=== PATIENT | male | born 1945 | race Caucasian/White ===

== ENCOUNTER 2022-06-10 07:47 | Outpatient (CLI) | payer MEDICARE ==
[2022-06-10] MEDS ORDERED: Iopamidol 300 61% 100 ML VIAL FS ONE (13:42)
== END 2022-06-10 07:48 | disposition home or self-care (01) ==
LOC: CSHCT 07:47
PROVIDERS: ATTEND Internal Medicine Gastroenterology
DX: Z87.19 Personal history of other diseases of the digestive system (principal); K59.09 Other constipation; K80.20 Calculus of gallbladder without cholecystitis without obstruction; I87.8 Other specified disorders of veins
CPT/HCPCS: 74178; 82565; Q9967

== ENCOUNTER 2023-09-01 14:24 | Inpatient (IN) | payer MEDICARE ==
[2023-09-01 15:04] VITALS: BMI 30.9
[2023-09-01] MEDS ORDERED: Acetaminophen 325 MG TAB PO PRN (15:54)
[2023-09-01] MEDS ORDERED: Ondansetron PF 4 MG/2 ML Vial IVP PRN (15:54)
[2023-09-01] MEDS ORDERED: Acetaminophen 650 MG Suppository PR PRN (15:54)
[2023-09-01] MEDS ORDERED: Ondansetron ODT 4 MG TAB PO PRN (15:54)
[2023-09-01] MEDS ORDERED: traZODone HCl 50 MG TAB PO PRN (16:54)
[2023-09-01] MEDS: Azithromycin 500 MG in Sodium Chloride 0.9% 250 ML 250 ML IVPB SCH (17:51)
[2023-09-01 19:08] LABS: Troponin I 0.107 ng/mL (< 0.028)
[2023-09-01] MEDS: Atorvastatin Calcium 20 MG TAB PO SCH (22:25)
[2023-09-01] MEDS: Magnesium Oxide 250 MG TAB PO SCH (22:25)
[2023-09-01] MEDS: predniSONE 5 MG TAB PO SCH (22:26)
[2023-09-01] MEDS: Polyvinyl Alcohol 1.4%/Povidone 0.6% Opth Drops EA EYE SCH (22:26)
[2023-09-01 22:35] LABS: Troponin I 0.086 ng/mL (< 0.028)
[2023-09-02 05:49] LABS: Anion Gap 11 mmol/L (10-20); BUN (Urea Nitrogen) 19 mg/dL (8.4-25.7); Calc. Creatinine Clearance 107 mL/min (70-130); Calcium 8.1 mg/dL (7.8-10.44); Carbon Dioxide 26 mmol/L (23-31); Chloride 108 mmol/L (98-107); Estimated GFR 89; Glucose 96 mg/dL (83-110); Potassium 3.9 mmol/L (3.5-5.1); Sodium 141 mmol/L (136-145)
[2023-09-02] MEDS: Levothyroxine Sodium 88 MCG TAB PO SCH (05:49)
[2023-09-02 05:54] LABS: #Eosinphils 0.2 10x3/uL (0.0-0.5); #Monocytes 0.7 10x3/uL (0.0-1.1); #Neutrophils 7.5 10x3/uL (1.5-8.4); %Basophils 0.3 % (0.0-2.0); %Eosinophils 1.5 % (0.0-6.0); %Lymphocytes 21.8 % (18.0-47.0); %Monocytes 6.7 % (0.0-10.0); %Neutrophils 69.4 % (40.0-75.0); Hematocrit 39.9 % (38.8-50.0); Mean Corpuscular HGB CONC 32.6 g/dL (32.0-36.0); Mean Corpuscular Hemoglobin 30.2 pg (27.0-33.0); Mean Corpuscular Volume 92.8 fl (81.2-95.1); Mean Platelet Volume 11.5 fl (7.4-10.4); RBC Distribution Width 14.4 % (11.5-14.5); White Blood Cell (WBC) Count 10.9 10x3/uL (3.5-10.5)
[2023-09-02 06:31] LABS: Platelet Adequacy Comment Appears Decreased; Platelet Count 117 10x3/uL (150-450); RBC Morph Comment Within Normal Limits
[2023-09-02 07:10] LABS: Actual Bicarbonate (HCO3v) 28.9 mEq/L (22-28); Analyzer IN Cardio CS ER; Base Excess 3.8 mEq/L (-2 - +2); Chloride (VBG) 106 mmol/L (98-106); Hematocrit-VBG 41 % (42.0-52.0); Hemoglobin (Hb) 13.9 g/dL (12.6-17.4); Potassium (VBG) 4.56 mmol/L (3.70-5.30); Puncture Site Other Site; RapidComm Collect By LAB TECH; Sodium 141 mmol/L (133-146)
[2023-09-02] MEDS: Losartan 50 MG TAB PO SCH (09:18)
[2023-09-02] MEDS: Enoxaparin 40 MG (0.4 mL) SYRINGE SC SCH (09:18)
[2023-09-02] MEDS: predniSONE 10 MG TAB PO SCH (09:19)
[2023-09-02] MEDS: Azelastine 137 MCG/NASAL Spray 30 ML NS SCH (09:19)
[2023-09-02] MEDS: Amlodipine 10 MG TAB PO SCH (09:19)
[2023-09-02] MEDS: Aspirin 81 mg Enteric Coated Tablet PO SCH (09:19)
[2023-09-02] MEDS: cefTRIAXone\\ROCEPHIN 2 GM in Sodium Chloride 0.9% 100 ML IVPB SCH (16:06)
[2023-09-02] MEDS: predniSONE 5 MG TAB PO SCH (18:35)
[2023-09-03] MEDS: predniSONE 10 MG TAB PO SCH (09:00)
[2023-09-03 09:32] VITALS: TEMP 98.1
[2023-09-03 09:33] LABS: #Eosinphils 0.2 10x3/uL (0.0-0.5); #Monocytes 0.6 10x3/uL (0.0-1.1); #Neutrophils 5.7 10x3/uL (1.5-8.4); %Basophils 0.4 % (0.0-2.0); %Eosinophils 1.8 % (0.0-6.0); %Lymphocytes 24.5 % (18.0-47.0); %Monocytes 6.8 % (0.0-10.0); %Neutrophils 66.3 % (40.0-75.0); Hematocrit 40.6 % (38.8-50.0); Hemoglobin 13.4 g/dL (13.5-17.5); Mean Corpuscular Volume 90.8 fl (81.2-95.1); Mean Platelet Volume 11.1 fl (7.4-10.4); Platelet Count 123 10x3/uL (150-450); RBC Distribution Width 13.4 % (11.5-14.5); Red Blood Cell (RBC) Count 4.47 10x6/uL (4.32-5.72); White Blood Cell (WBC) Count 8.6 10x3/uL (3.5-10.5)
[2023-09-03 09:56] LABS: Anion Gap 11 mmol/L (10-20); BUN (Urea Nitrogen) 15 mg/dL (8.4-25.7); Calc. Creatinine Clearance 111 mL/min (70-130); Calcium 8.3 mg/dL (7.8-10.44); Carbon Dioxide 27 mmol/L (23-31); Chloride 106 mmol/L (98-107); Estimated GFR 90; Glucose 144 mg/dL (83-110); Potassium 3.4 mmol/L (3.5-5.1); Sodium 141 mmol/L (136-145)
[2023-09-03] MEDS: Potassium Chloride 20 MEQ TAB PO SCH (12:45)
[2023-09-03 12:54] VITALS: BP 154/70
== END 2023-09-03 15:40 | disposition home or self-care (01) | DRG 193 ==
LOC: CSHTELE 14:24 → INTOOBSV 14:24 → OBSVTOIN 15:54
PROVIDERS: ADMIT Family Medicine; ATTEND Internal Medicine
DX: J18.9 Pneumonia, unspecified organism (principal); I21.A1 Myocardial infarction type 2; J96.01 Acute respiratory failure with hypoxia; E03.9 Hypothyroidism, unspecified; I25.10 Atherosclerotic heart disease of native coronary artery without angina pectoris; R79.89 Other specified abnormal findings of blood chemistry; I10 Essential (primary) hypertension; E78.5 Hyperlipidemia, unspecified; E87.6 Hypokalemia; G47.33 Obstructive sleep apnea (adult) (pediatric); Z86.718 Personal history of other venous thrombosis and embolism
CPT/HCPCS: 36415; 80048; 82805; 84145; 84443; 84484; 85025; 93306; 94760; 94762; J0456; J0696; J1650; J3490; J7050; J7512

== ENCOUNTER 2024-02-11 09:34 | Outpatient (CLI) | payer MEDICARE ==
[2024-02-11 11:07] LABS: Hemoglobin 14.2 g/dL (13.5-17.5); Mean Corpuscular HGB CONC 32.3 g/dL (32.0-36.0); Mean Corpuscular Hemoglobin 28.9 pg (27.0-33.0); Mean Corpuscular Volume 89.4 fL (81.2-95.1); Mean Platelet Volume 11.2 fL (7.4-10.4); Platelet Count 177 10x3/uL (150-450); RBC Distribution Width 13.7 % (11.5-14.5); Red Blood Cell (RBC) Count 4.92 10x6/uL (4.32-5.72); White Blood Cell (WBC) Count 10.2 10x3/uL (3.5-10.5)
[2024-02-11 11:09] LABS: INR-International Normal Ratio 1.1; PTT 26.7 sec (22.0-33.0); Prothrombin Time 11.7 sec (9.5-12.1)
[2024-02-11 11:28] LABS: Anion Gap 15 mmol/L (10-20); BUN (Urea Nitrogen) 18 mg/dL (8.4-25.7); Calc. Creatinine Clearance 0 mL/min (70-130); Calcium 9.6 mg/dL (7.8-10.44); Carbon Dioxide 26 mmol/L (23-31); Chloride 106 mmol/L (98-107); Estimated GFR 88; Glucose 110 mg/dL (83-110); Potassium 3.7 mmol/L (3.5-5.1); Sodium 143 mmol/L (136-145)
== END 2024-02-11 09:35 | disposition home or self-care (01) ==
LOC: CSHLAB 09:34
PROVIDERS: ATTEND Internal Medicine Cardiovascular Disease
DX: Z01.812 Encounter for preprocedural laboratory examination (principal); I49.5 Sick sinus syndrome
CPT/HCPCS: 80048; 85027; 85610; 85730